=== PATIENT | male | born 1975 | race Hispanic/Latino ===

== ENCOUNTER 2019-05-31 10:31 | Emergency (ER) | payer BC ==
--- OUTSIDE RECORDS SUMMARY | 2019-05-31 10:33 | XMS REPORT ---
:1975 Author Organization eClinicalWorks Care Team Providers Name Role Phone Yoav Eddy Provider Role Unavailable Allergies, Adverse Reactions, Alerts Substance Reaction Event Type N.K.D.A. Info Not Available Non Drug Allergy Problems Problem Type Condition Code Onset Dates Condition Status Problem Obesity (BMI 30-39.9) E66.9 Active Problem Hypertriglyceridemia E78.1 Active Problem Palpitations R00.2 Active Assessment Acute non-recurrent maxillary J01.00 Active sinusitis Problem Encounter for general adult medical Z00.01 Active examination with abnormal findings Problem Elevated blood pressure reading R03.0 Active without diagnosis of hypertension Medications Medication Code Code Instructions Start End Date Status Dosage System Date Azithromycin [facility] [id number] 250 MG Orally Oct 09, Oct 14, Active 2 tablets Once a day 2018 2018 on the first day, then 1 tablet daily for 4 days Results No Known Results Summary Purpose eClinicalWorks Submission
--- NOTE | 2019-05-31 11:09 | ER ---
Nurse's Notes [facility] Name: Gerard Busch Age: 44 yrs Sex: Male : 1975 Arrival Date: 05/31/2019 Time: 10:34 Bed 13 Private MD: Diagnosis: Local infection of the skin and subcutaneous tissue, unspecified Presentation: 05/31 10:35 Presenting complaint: Patient states: last week was [place] and started having sv tenderness on the RLE and then a couple of days ago the rash started on his right thigh. Reports subjective fever and headache last night. Transition of care: patient was not received from another setting of care. Onset of symptoms was April 2019. Risk Assessment: Do you want to hurt yourself or someone else? Patient reports no desire to harm self or others. Initial Sepsis Screen: Does the patient meet any 2 criteria? No. Patient's initial sepsis screen is negative. Does the patient have a suspected source of infection? No. Patient's initial sepsis screen is negative. Care prior to arrival: None. 10:35 Method Of Arrival: Ambulatory sv 10:35 Acuity: DIMAS 4 sv Triage Assessment: 10:36 General: Appears in no apparent distress. comfortable, Behavior is cooperative, bp appropriate for age, anxious. Pain: Denies pain. EENT: No deficits noted. Neuro: No deficits noted. Cardiovascular: No deficits noted. Respiratory: No deficits noted. GI: No signs and/or symptoms were reported involving the gastrointestinal system. : No signs and/or symptoms were reported regarding the genitourinary system. Derm: Reports itching. Musculoskeletal: No deficits noted. Historical: - Allergies: 10:36 No Known Allergies; sv - PMHx: 10:36 None; sv - PSHx: 10:36 None; sv - Immunization history:: Adult Immunizations up to date. - Social history:: Smoking status: Patient/guardian denies using tobacco. - Ebola Screening: : No symptoms or risks identified at this time. Screenin:45 Abuse screen: Denies threats or abuse. Denies injuries from another. Nutritional bp screening: No deficits noted. Tuberculosis screening: No symptoms or risk factors identified. Fall Risk None identified. Assessment: 10:36 General: SEE TRIAGE NOTE. bp 11:36 Reassessment: PT D/C HOME AMBULATORY WITH FAMILY, DX WITH SKIN INFECTION. bp Vital Signs: 10:36 BP 143 / 83; Pulse 71; Resp 16; Temp 99; Pulse Ox 98% ; Weight 122.47 kg; Height 6 ft. sv 2 in. (187.96 cm); 11:36 BP 145 / 75; Pulse 69; Resp 16; Temp 98; Pulse Ox 98% ; bp 10:36 Body Mass Index 34.67 (122.47 kg, 187.96 cm) sv ED Course: 10:34 Patient arrived in ED. as 10:36 Triage completed. sv 10:37 Arm band placed on. sv 10:43 Gisella Rich FNP-C is PHCP. kb 10:43 Juan Pablo Guaman MD is Attending Physician. kb 10:45 Patient has correct armband on for positive identification. Bed in low position. Call bp light in reach. Side rails up X2. 10:54 Salvatore Hinojosa, RN is Primary Nurse. bp 11:36 No provider procedures requiring assistance completed. Patient did not have IV access bp during this emergency room visit. Administered Medications: 11:35 Drug: Bactrim (160 mg-800 mg (DS) 1 tablet Route: PO; bp 11:37 Follow up: Response: Medication administered at discharge. bp 11:35 Drug: Doxycycline 100 mg Route: PO; bp 11:37 Follow up: Response: Medication administered at discharge. bp Outcome: 11:08 Discharge ordered by MD. kb 11:37 Discharged to home ambulatory, with family. bp 11:37 Condition: stable 11:37 Discharge instructions given to patient, Instructed on discharge instructions, follow up and referral plans. medication usage, Demonstrated understanding of instructions, follow-up care, medications, Prescriptions given X 3. 11:38 Patient left the ED. bp Signatures: Gisella Rich FNP-C FNP-Ckb Verde, Stephanie RN RN Patricia Zarate as Salvatore Hinojosa, RICARDO RN bp Corrections: (The following items were deleted from the chart) 10:41 10:35 Presenting complaint: Patient states: last week was on his land and started sv having tenderness on the RLE and then a couple of days ago the rash started on his right thigh. sv 10:41 10:35 Acuity: DIMAS 5 sv sv
--- NOTE | 2019-05-31 11:10 | EDPHYS ---
Physician Documentation [facility] Name: Geradr Busch Age: 44 yrs Sex: Male : 1975 Arrival Date: 05/31/2019 Time: 10:34 Bed 13 Private MD: ED Physician Juan Pablo Guaman HPI: 05/31 11:26 This 44 yrs old Male presents to ER via Ambulatory with complaints of Rash. kb 11:26 The patient's rash thought to be caused by an unknown cause. The rash is located on the kb right quadriceps. The rash can be described as erythematous, vesicular. Onset: The symptoms/episode began/occurred 8 day(s) ago. Associated signs and symptoms: Pertinent positives: muscle aches in thigh. Severity of symptoms: At their worst the symptoms were moderate in the emergency department the symptoms are unchanged. The patient has not experienced similar symptoms in the past. The patient has not recently seen a physician. Pt reports he was clearing out some land 8 days ago and was stuck by a thorn that was on a vine. States he had some muscle soreness in his thigh the next day, then developed a rash. States he had a fever and headache last night so he came in today because he wasn't sure if they were related. Historical: - Allergies: 10:36 No Known Allergies; sv - PMHx: 10:36 None; sv - PSHx: 10:36 None; sv - Immunization history:: Adult Immunizations up to date. - Social history:: Smoking status: Patient/guardian denies using tobacco. - Ebola Screening: : No symptoms or risks identified at this time. ROS: 11:22 Cardiovascular: Negative for chest pain, palpitations, and edema, Respiratory: Negative kb for shortness of breath, cough, wheezing, and pleuritic chest pain, Abdomen/GI: Negative for abdominal pain, nausea, vomiting, diarrhea, and constipation, MS/Extremity: Negative for injury and deformity. 11:22 Skin: Positive for rash. 11:26 Constitutional: Positive for fever. kb 11:26 Neuro: Positive for headache. Exam: 11:22 Constitutional: This is a well developed, well nourished patient who is awake, alert, kb and in no acute distress. Head/Face: Normocephalic, atraumatic. Chest/axilla: Normal chest wall appearance and motion. Nontender with no deformity. No lesions are appreciated. Cardiovascular: Regular rate and rhythm with a normal S1 and S2. No gallops, murmurs, or rubs. Normal PMI, no JVD. No pulse deficits. Respiratory: Lungs have equal breath sounds bilaterally, clear to auscultation and percussion. No rales, rhonchi or wheezes noted. No increased work of breathing, no retractions or nasal flaring. Abdomen/GI: Soft, non-tender, with normal bowel sounds. No distension or tympany. No guarding or rebound. No evidence of tenderness throughout. MS/ Extremity: Pulses equal, no cyanosis. Neurovascular intact. Full, normal range of motion. Neuro: Awake and alert, GCS 15, oriented to person, place, time, and situation. Cranial nerves II-XII grossly intact. Motor strength 5/5 in all extremities. Sensory grossly intact. Cerebellar exam normal. Normal gait. 11:24 Skin: quarter sized area of discoloration with small ulcerations within it to right kb thigh with red, vesicular lesions around it that spread down to knee. Full ROM of leg. . Vital Signs: 10:36 BP 143 / 83; Pulse 71; Resp 16; Temp 99; Pulse Ox 98% ; Weight 122.47 kg; Height 6 ft. sv 2 in. (187.96 cm); 11:36 BP 145 / 75; Pulse 69; Resp 16; Temp 98; Pulse Ox 98% ; bp 10:36 Body Mass Index 34.67 (122.47 kg, 187.96 cm) sv MDM: 10:43 Patient medically screened. kb 11:20 Data reviewed: vital signs, nurses notes. Data interpreted: Pulse oximetry: on room air kb is 98 %. Interpretation: normal. Counseling: I had a detailed discussion with the patient and/or guardian regarding: the historical points, exam findings, and any diagnostic results supporting the discharge/admit diagnosis, the need for outpatient follow up, a family practitioner, to return to the emergency department if symptoms worsen or persist or if there are any questions or concerns that arise at home. Administered Medications: 11:35 Drug: Bactrim (160 mg-800 mg (DS) 1 tablet Route: PO; bp 11:37 Follow up: Response: Medication administered at discharge. bp 11:35 Drug: Doxycycline 100 mg Route: PO; bp 11:37 Follow up: Response: Medication administered at discharge. bp Disposition: 06/01 07:32 Co-signature as Attending Physician, Juan Pablo Guaman MD I agree with the assessment and [facility] plan of care. Disposition: 05/31/19 11:08 Discharged to Home. Impression: Local infection of the skin and subcutaneous tissue, unspecified. - Condition is Stable. - Discharge Instructions: Rash, [id number], Wound Infection, [id number]. - Prescriptions for Doxycycline Hyclate 100 mg Oral Tablet - take 1 tablet by ORAL route every 12 hours; 20 tablet. Bactrim DS 800- 160 mg Oral Tablet - take 1 tablet by ORAL route every 12 hours for 10 days; 20 tablet. Bactroban 2 % Topical Ointment - Apply to affected area 1 application by TOPICAL route every 12 hours; 15 gram. - Medication Reconciliation Form, Thank You Letter, Antibiotic Education, Prescription Opioid Use form. - Follow up: Emergency Department; When: As needed; Reason: Worsening of condition. Follow up: Private Physician; When: 2 - 3 days; Reason: Recheck today's complaints, Continuance of care, Re-evaluation by your physician. Signatures: Gisella Rich, TEMPORARY HELP AGENCY REFERRAL CLERK-C TEMPORARY HELP AGENCY REFERRAL CLERK-Carol Xie RN RN sv Anderson, Corey, MD MD cha Peltier, Brian RN RN bp Corrections: (The following items were deleted from the chart) 05/31 11:26 11:22 Constitutional: Negative for fever, chills, and weight loss, Cardiovascular: kb Negative for chest pain, palpitations, and edema, Respiratory: Negative for shortness of breath, cough, wheezing, and pleuritic chest pain, Abdomen/GI: Negative for abdominal pain, nausea, vomiting, diarrhea, and constipation, MS/Extremity: Negative for injury and deformity, Neuro: Negative for headache, weakness, numbness, tingling, and seizure, kb : 11:22 Constitutional: This is a well developed, well nourished patient who is awake, kb alert, and in no acute distress. Head/Face: Normocephalic, atraumatic. Chest/axilla: Normal chest wall appearance and motion. Nontender with no deformity. No lesions are appreciated. Cardiovascular: Regular rate and rhythm with a normal S1 and S2. No gallops, murmurs, or rubs. Normal PMI, no JVD. No pulse deficits. Respiratory: Lungs have equal breath sounds bilaterally, clear to auscultation and percussion. No rales, rhonchi or wheezes noted. No increased work of breathing, no retractions or nasal flaring. Abdomen/GI: Soft, non-tender, with normal bowel sounds. No distension or tympany. No guarding or rebound. No evidence of tenderness throughout. MS/ Extremity: Pulses equal, no cyanosis. Neurovascular intact. Full, normal range of motion. Neuro: Awake and alert, GCS 15, oriented to person, place, time, and situation. Cranial nerves II-XII grossly intact. Motor strength 5/5 in all extremities. Sensory grossly intact. Cerebellar exam normal. Normal gait. kb 11:38 11:08 05/31/2019 11:08 Discharged to Home. Impression: Local infection of the skin and bp subcutaneous tissue, unspecified. Condition is Stable. Forms are Medication Reconciliation Form, Thank You Letter, Antibiotic Education, Prescription Opioid Use. Follow up: Emergency Department; When: As needed; Reason: Worsening of condition. Follow up: Private Physician; When: 2 - 3 days; Reason: Recheck today's complaints, Continuance of care, Re-evaluation by your physician. kb
[2019-05-31] MEDS ORDERED: SMZ./TMP. 800/160 MG TABLET ONE (11:33)
[2019-05-31] MEDS ORDERED: DOXYCYCLINE 100 MG CAP PO ONE (11:33)
== END 2019-05-31 11:38 | disposition home or self-care (01) ==
LOC: ER 10:31
DX: L08.9 Local infection of the skin and subcutaneous tissue, unspecified (principal)
CPT/HCPCS: 99283